=== PATIENT | male | born 1985 | race Caucasian/White ===

== ENCOUNTER 2019-03-18 07:24 | Day surgery (SDC) | payer OTHER ==
[~2019-03-18 07:24] MED LIST: SEVOFLURANE 15 MIN
[2019-03-18] MEDS ORDERED: LACTATED RINGER'S 1,000 ML IV (08:30)
[2019-03-18] MEDS ORDERED: OXYMETAZOLINE 0.05% 15 ML NAS SPRAY NASAL (09:04)
[2019-03-18] MEDS ORDERED: COCAINE 4% 4 ML TOP (09:04)
[2019-03-18] MEDS ORDERED: MIDAZOLAM 1 MG/ML 2 ML INJ (09:15)
[2019-03-18] MEDS ORDERED: FENTAnyl 50 MCG/ML VIAL ×2 (09:15→09:22)
[2019-03-18] MEDS: LIDOCAINE 1%/EPI 30 ML INJ (09:49)
[2019-03-18] MEDS: BACITRACIN/POLYMYXIN 28.35 GM OINT TOP (09:49)
[2019-03-18] MEDS: LIDOCAINE 1%/EPI (1:100,000) (MDV) 20 ML INJ (09:50)
[2019-03-18] MEDS ORDERED: PROPOFOL 20 ML (10:06)
[2019-03-18] MEDS ORDERED: LIDOCAINE 2% (SDV) 5 ML INJ (10:06)
[2019-03-18] MEDS ORDERED: ROCURONIUM 50 MG INJ (10:06)
[2019-03-18] MEDS ORDERED: ONDANSETRON 4 MG INJ (10:11)
[2019-03-18] MEDS ORDERED: NEOSTIGMINE 3 MG/3 ML SYRINGE (10:15)
[2019-03-18] MEDS ORDERED: GLYCOPYRROLATE 0.4 MG INJ (10:15)
[2019-03-18] MEDS ORDERED: HYDROmorphONE 1 MG/5 ML IV SYRINGE IV ×2 (10:30)
[2019-03-18] MEDS ORDERED: hydrALAzine 20 MG INJ IV (10:30)
[2019-03-18] MEDS ORDERED: ONDANSETRON 4 MG INJ IV (10:30)
[2019-03-18] MEDS ORDERED: DIPHENHYDRAMINE 50 MG INJ IV (10:30)
[2019-03-18] MEDS ORDERED: METOCLOPRAMIDE 10 MG INJ IV (10:30)
[2019-03-18] MEDS ORDERED: MEPERIDINE 25 MG INJ IV (10:30)
[2019-03-18] MEDS ORDERED: LABETALOL HCL 20MG INJ IV (10:30)
[2019-03-18] MEDS ORDERED: ACETAMINOPHEN 325 MG TAB (11:15)
[2019-03-18] MEDS: FENTAnyl 50 MCG/ML VIAL IV ×3 (11:25→11:41)
[2019-03-18] MEDS ORDERED: HYDROCODONE/APAP (7.5/325) TAB PO (13:00)
== END 2019-03-18 13:00 | disposition home or self-care (01) ==
LOC: SDS 07:24
DX: J34.2 Deviated nasal septum (principal); J34.3 Hypertrophy of nasal turbinates; Z87.891 Personal history of nicotine dependence
CPT/HCPCS: 30140; 88300

== ENCOUNTER 2019-03-22 21:45 | Emergency (ER) | payer OTHER | END 2019-03-23 01:47 | disposition home or self-care (01) | LOC: FTE 21:45 | DX: Z48.00 Encounter for change or removal of nonsurgical wound dressing (principal); F17.210 Nicotine dependence, cigarettes, uncomplicated | CPT/HCPCS: 99282; Z7502 ==